=== PATIENT | male | born 1985 | race Caucasian/White ===

== ENCOUNTER 2024-10-28 13:39 | Emergency (ER) | payer MEDICAID, OTHER ==
[~2024-10-28] VITALS: Ht 170.2 cm; Wt 66.8 kg
[~2024-10-28 13:39] MED LIST: ALBU18HF2 INH
[2024-10-28] MEDS ORDERED: BUPR1FIL3 SL (15:11)
[2024-10-28 15:15] VITALS: BP 120/76; PULSE 65; RESP 16; TEMP 98; O2SAT 99
== END 2024-10-28 15:22 | disposition home or self-care (01) ==
LOC: ER 13:40
DX: F11.20 Opioid dependence, uncomplicated (principal); Z76.0 Encounter for issue of repeat prescription
CPT/HCPCS: 99281